=== PATIENT | female | born 1940 | race Caucasian/White ===

== ENCOUNTER 2025-02-03 11:32 | Inpatient (IN) | payer OTHER ==
[2025-02-03 13:22] LABS: ABSOLUTE IMMATURE GRANULOCYTES 0.09 x10^3/uL (0.0-0.031); BASOPHILS # 0.04 x10^3/uL (0.01-0.08); EOSINOPHIL % 1.1 % (0.7-5.8); EOSINOPHILS # 0.13 x10^3/uL (0.04-0.36); MCHC 32.8 g/dl (32.2-35.5); MEAN CELL VOLUME 96.0 fl (79.4-94.8); MEAN PLT VOLUME 9.6 fl (9.4-12.3); MONOCYTE # 0.67 x10^3/uL (0.24-0.86); MONOCYTE % 5.6 % (4.7-12.5); RDW 13.1 % (12.5-17.0)
[2025-02-03 13:38] LABS: GLUCOSE,RANDOM 155.0 mg/dL (74-106); TOT PROT 7.2 g/dl (6.4-8.2)
[2025-02-03 13:39] LABS: CO2 25.0 mmol/L (21-32)
[2025-02-03 13:41] LABS: ALK PHOS 74.0 U/L (40-150)
[2025-02-03 13:43] LABS: SGOT/AST 31.0 U/L (5-34); SGPT/ALT 18.0 U/L (0-55)
[2025-02-03 13:44] LABS: CREATININE 1.17 mg/dL (0.55-1.3)
[2025-02-03 16:11] LABS: HIV INTERPRETATION NEGATIVE (NEGATIVE)
[2025-02-03 16:12] LABS: HCV DIAGNOSTIC IN-HOUSE W/RFLX NON-REACTIVE (NONREACTIVE)
[2025-02-03] MEDS: ROSUVASTATIN CA 10 MG TABLET PO SCH (21:32)
[2025-02-03] MEDS: HEPARIN NA (PORCINE) 5,000 UNITS/ML 1ML VIAL SQ SCH (21:32)
[2025-02-04 01:33] VITALS: BMI 22.2
[2025-02-04 06:38] VITALS: RESP 18
[2025-02-04] MEDS: LEVOTHYROXINE NA 88 MCG TABLET (FP) PO SCH (06:39)
[2025-02-04] MEDS: EMPAGLIFLOZIN (JARDIANCE) 10 MG TABLET PO SCH (06:39)
[2025-02-04 07:32] LABS: ABSOLUTE IMMATURE GRANULOCYTES 0.05 x10^3/uL (0.0-0.031); BASOPHILS # 0.05 x10^3/uL (0.01-0.08); EOSINOPHIL % 3.6 % (0.7-5.8); EOSINOPHILS # 0.24 x10^3/uL (0.04-0.36); MCHC 32.2 g/dl (32.2-35.5); MEAN CELL VOLUME 96.0 fl (79.4-94.8); MEAN PLT VOLUME 9.6 fl (9.4-12.3); MONOCYTE # 0.51 x10^3/uL (0.24-0.86); MONOCYTE % 7.6 % (4.7-12.5); RDW 13.1 % (12.5-17.0)
[2025-02-04 07:59] LABS: GLUCOSE,RANDOM 141.0 mg/dL (74-106); TOT PROT 6.8 g/dl (6.4-8.2)
[2025-02-04 08:00] LABS: CO2 26.0 mmol/L (21-32)
[2025-02-04 08:02] LABS: ALK PHOS 62.0 U/L (40-150)
[2025-02-04 08:04] LABS: SGOT/AST 26.0 U/L (5-34); SGPT/ALT 18.0 U/L (0-55)
[2025-02-04 08:05] LABS: CREATININE 1.21 mg/dL (0.55-1.3); LDL CHOLESTEROL (ONLY SJRH) 59.0 mg/dL (5-100)
[2025-02-04] MEDS: RAMIPRIL 5 MG CAPSULE PO SCH (10:29)
[2025-02-05] MEDS ORDERED: PNEUMOC 20-VAL CONJ-DIP CRM/PF 0.5 ML SYRINGE IM ONE (02:00)
[2025-02-05] MEDS: AMOX TR/POT CLAV 500MG/125MG TABLETS (FP) PO SCH (09:22)
[2025-02-05 15:18] VITALS: BP 123/54; PULSE 59; TEMP 98.1
== END 2025-02-05 15:34 | disposition home or self-care (01) | DRG 312 ==
LOC: JER 11:32 → JERBED 15:46 → OBSVTOIN 16:14 → J4S 18:35
PROVIDERS: ADMIT Family Medicine; ATTEND Family Medicine
PROC: 4A10X4Z Monitoring of Central Nervous Electrical Activity, External Approach (ICD-10-PCS; principal; 2025-02-04)
DX: R55 Syncope and collapse (principal); E03.9 Hypothyroidism, unspecified; E78.5 Hyperlipidemia, unspecified; I10 Essential (primary) hypertension; R42 Dizziness and giddiness; E11.9 Type 2 diabetes mellitus without complications; R63.4 Abnormal weight loss; J32.2 Chronic ethmoidal sinusitis
CPT/HCPCS: 36415; 70450-TC; 70551-TC; 71045-TC-FY; 74177-TC; 80053; 80061; 82607; 82962; 83036; 83735; 84443; 84484; 85025; 86803; 87389; 93005; 93010; 95816; 99285-25; G0378; Q9967